=== PATIENT | female | born 1960 | race Caucasian/White ===

== ENCOUNTER → 2017-01-11 | Outpatient (CLI) | payer OTHER ==
[~2017-01-11] MED LIST: ASPIRIN E.C. 8181 MG PO; CALCIUM1 CAP PO; CARDI-OMEGA1000 MG PO; LIQUID MAGNESI400 MG PO; MULTIPLE VITAMI1 CAP PO; RANITIDINE150 MG PO
== END ==
LOC: MC.RAD 14:38
DX: Z12.31 Encounter for screening mammogram for malignant neoplasm of breast (principal)

== ENCOUNTER → 2017-03-21 | Outpatient (CLI) | payer OTHER | LOC: COL.RAD 10:17 | DX: M48.07 Spinal stenosis, lumbosacral region (principal); M51.37 Other intervertebral disc degeneration, lumbosacral region; M51.27 Other intervertebral disc displacement, lumbosacral region; M43.17 Spondylolisthesis, lumbosacral region; Z98.890 Other specified postprocedural states ==

== ENCOUNTER → 2018-01-30 | Outpatient (CLI) | payer OTHER | LOC: MC.RAD 14:55 | DX: Z12.31 Encounter for screening mammogram for malignant neoplasm of breast (principal) ==

== ENCOUNTER → 2019-03-03 | Outpatient (CLI) | payer OTHER | LOC: MC.RAD 11:00 | DX: Z12.31 Encounter for screening mammogram for malignant neoplasm of breast (principal) ==

== ENCOUNTER → 2020-04-05 | Outpatient (CLI) | payer OTHER | LOC: MC.RAD 14:45 | DX: Z12.31 Encounter for screening mammogram for malignant neoplasm of breast (principal) ==

== ENCOUNTER 2020-12-17 08:03 | Day surgery (SDC) | payer OTHER ==
[~2020-12-17] VITALS: Ht 162.6 cm; Wt 91.4 kg
[2020-12-17] MEDS ORDERED: CRESTOR20 MG PO (08:32)
[2020-12-17] MEDS ORDERED: ASPIRIN 81M81 MG/TA2 PO (08:32)
[2020-12-17] MEDS ORDERED: PEPCID AC 10MG10 MG PO (08:32)
[2020-12-17] MEDS ORDERED: CALCIUM/MAGNESI1 T17 PO (08:33)
[2020-12-17] MEDS ORDERED: VITAMIN D 400400 IU PO (08:34)
[2020-12-17] MEDS ORDERED: THE MEDICINE SH1 POW PO (08:34)
[2020-12-17] MEDS ORDERED: STOOL SOFTENER100 M2 PO (08:34)
[2020-12-17 08:35] VITALS: BP 149/98; PULSE 79; TEMP 97.8
[2020-12-17 10:45] VITALS: BP 123/93; PULSE 69; TEMP 97.9
[2020-12-17 11:00] VITALS: BP 120/72; PULSE 68
--- NOTE | 2020-12-17 11:30 | NUR ---
1045 Pt returns from endo procedure via cart and RN assist to [facility]. Pt ambulates from cart to recliner with RN assist. Monitors on and alarms set. Call light within reach. Report received from JASMYN Randolph. Pt alert and oriented. Pt requests juice and muffin. Pt denies any pain or nausea. 1100 Pt taking food and drink well. No complications noted. 1116 Discharge instructions given to pt and . All questions answered to their satisfaction. Handed to pt are a thank you card and discharge information. 1130 Pt transferred out of the hospital via wheelchair and JASMYN Lane assist, to private vehicle driven by pt's .
== END 2020-12-17 11:30 | disposition home or self-care (01) ==
LOC: SDCO 08:03
DX: Z12.11 Encounter for screening for malignant neoplasm of colon (principal); K57.30 Diverticulosis of large intestine without perforation or abscess without bleeding; K21.9 Gastro-esophageal reflux disease without esophagitis; M19.90 Unspecified osteoarthritis, unspecified site; E78.5 Hyperlipidemia, unspecified; R73.01 Impaired fasting glucose; E78.2 Mixed hyperlipidemia; F41.9 Anxiety disorder, unspecified; Z20.822 Contact with and (suspected) exposure to COVID-19
CPT/HCPCS: J2704; J7030

== ENCOUNTER → 2021-05-16 | Outpatient (CLI) | payer OTHER ==
[~2021-05-16] MED LIST changes: +ASPIRIN 81M81 MG/TA2 PO; +CALCIUM/MAGNESI1 T17 PO; +CRESTOR20 MG PO; +PEPCID AC 10MG10 MG PO; +STOOL SOFTENER100 M2 PO; +THE MEDICINE SH1 POW PO; +VITAMIN D 400400 IU PO
== END ==
LOC: MC.RAD 15:00
DX: Z12.31 Encounter for screening mammogram for malignant neoplasm of breast (principal)

== ENCOUNTER → 2022-07-12 | Outpatient (CLI) | payer OTHER | LOC: MC.RAD 14:22 | DX: Z12.31 Encounter for screening mammogram for malignant neoplasm of breast (principal) ==

== ENCOUNTER → 2023-08-29 | Outpatient (CLI) | payer OTHER | LOC: MC.RAD 11:45 | DX: Z12.31 Encounter for screening mammogram for malignant neoplasm of breast (principal) ==